=== PATIENT | male | born 1980 | race Caucasian/White ===

== ENCOUNTER 2021-09-10 09:53 | Emergency (ER) | payer MEDICAID ==
[2021-09-10 10:06] VITALS: BP 137/81
--- NOTE | 2021-09-10 10:23 | ED Physician Documentation ---
PD HPI UPPER EXT INJURY - Stated complaint Stated Complaint: LT HAND PX - Chief complaint Chief Complaint: Ext Problem - History obtained from History obtained from: Patient - History of Present Illness Location: Left, Finger Type of injury: Laceration Timing - onset: How many days ago (5-6) Timing - duration: Days Timing - details: Abrupt onset (he accidnetally cut finger with knife 5-6 days ago and is having some pain at finger and extending to wrist/forearm. Redness around the cut but no drainage. No redness proximal.) Worsened by: Moving, Palpating Associated symptoms: Swelling. No: Weakness, Numbness Similar symptoms before: Has not had sx before Review of Systems Constitutional: denies: Fever, Chills, Myalgias Neurologic: reports: Focal weakness (hurts for flex/extension so reluctant to move vs weak to move.). denies: Numbness PD PAST MEDICAL HISTORY - Past Medical History Cardiovascular: None Respiratory: None Endocrine/Autoimmune: None - Present Medications Home Medications: Ambulatory Orders Medication Instructions Recorded Confirmed Acetaminophen [Acetaminophen Extra 500 mg PO QID PRN #30 tablet 09/10/21 Strength] Doxycycline Hyclate 100 mg PO BID 7 Days #14 cap 09/10/21 Ibuprofen [Motrin] 600 mg PO TID PRN #20 tab 09/10/21 Mupirocin 2% Oint [Bactroban 2% 1 applic TOP TID #15 gm 09/10/21 Oint] - Allergies Allergies/Adverse Reactions: Allergies Allergy/AdvReac Type Severity Reaction Status Date / Time theophylline Allergy Unknown Verified 09/10/21 10:06 - Living Situation Living Arrangement: reports: Homeless PD ED PE NORMAL - Vitals Vital signs reviewed: Yes - General General: Alert and oriented X 3, Well developed/nourished, Other (somewhat sleepy but complains of lot of pain in finger when talking about it. ) - Derm Derm: Normal color, Warm and dry, Other (general redness and irritated skin on hands/fingers, possible dermatitis versus chronic cold exposure. left index finger lac at radial middle phalanx to fatty tissue. DOes not appear to go to tendon. red without drainage. Locally tender with swelling. ) - Neuro Neuro: No sensory deficit, Other (hurts with flex and extension with pain into wrist. No redness, tenderness, swelling in wrist nor forearm so does not have appearance of tenosynovitis. ) Results - Vitals Vitals: Oxygen O2 Source Room air PD MEDICAL DECISION MAKING - ED course Complexity details: considered differential (wound infection apparent. Does not clinically seem tenosynovitis. Consider some nerve injury with the pain proximal on movement. Pain flex and extend so seems more like just hurts rather than specific tendon injury. Reassess after abx/nsaids for few days. ), d/w patient Departure - Departure Disposition: 01 Home, Self Care Clinical Impression: Hand pain, left, Wound infection Finger laceration Qualifiers: Encounter type: initial encounter Finger: index finger Damage to nail status: without damage Foreign body presence: without foreign body Laterality: left Qualified Code(s): S61.211A - Laceration without foreign body of left index fin babak without damage to nail, initial encounter Condition: Stable Record reviewed to determine appropriate education?: Yes Instructions: ED Laceration Hand Prescriptions: Acetaminophen [Acetaminophen Extra Strength] 500 mg PO QID PRN #30 tablet PRN Reason: Pain Mupirocin 2% Oint [Bactroban 2% Oint] 1 applic TOP TID #15 gm Doxycycline Hyclate 100 mg PO BID 7 Days #14 cap Ibuprofen [Motrin] 600 mg PO TID PRN #20 tab PRN Reason: Pain Comments: The wound itself does not look obviously infected but I would be concerned about that as the cause for the pain through the hand and forearm. We can go with some antibiotics as well as anti-inflammatories. There may be pain up through the hand and forearm from injury to the tendon of the finger and just hitting on the nerve irritation. This can be treated with the anti-inflammatories and also a finger splint to protect movement as its healing. Doxycycline antibiotic twice daily for a week. Ibuprofen 3 times a day with food for a week. Mupirocin topical antibiotic ointment 2-3 times daily to the wound after cleansing it with soap and water. Use the finger splint to guard and protect motion of the finger and help with pain. Add Tylenol if needed for pain 4 times a day. Recheck if not improving well over the next several days to week. Discharge Date/Time: 09/10/21 11:08
[2021-09-10] MEDS ORDERED: IBUPROFEN 600 MG TABLET PO STA (10:46)
[2021-09-10] MEDS ORDERED: ACETAMINOPHEN 325 MG TABLET PO STA (10:46)
[2021-09-10] MEDS ORDERED: DOXYCYCLINE 100 MG TABLET PO STA (10:46)
[2021-09-10] MEDS ORDERED: MUPIROCIN 2% OINT 1 GM TOP STA (10:47)
== END 2021-09-10 11:08 | disposition home or self-care (01) ==
LOC: ED 09:53
DX: S61.211A Laceration without foreign body of left index finger without damage to nail, initial encounter (principal); W26.0XXA Contact with knife, initial encounter
CPT/HCPCS: 99282; 99284; A9270